=== PATIENT | male | born 1955 | race Caucasian/White ===

== ENCOUNTER 2020-06-03 08:36 | Outpatient (REF) | payer MEDICARE, SELFPAY ==
--- NOTE | ~2020-06-03 | XR_ITS ---
EXAMINATION: XR CHEST CLINICAL INFORMATION: Left chest wall pain. Rule out pneumonia. COMPARISON: CT abdomen and pelvis 04/11/2006 TECHNIQUE: 2 views of the chest were obtained. FINDINGS: To the right of the thoracic spine, superimposed upon the cardiac shadow there is a convex opacity which corresponds with a fat-containing paraesophageal hernia seen on prior CT. The cardiomediastinal silhouette is otherwise normal in size and morphology. The lungs are well-expanded and there is a small amount of linear atelectasis within the lingula which is similar to that seen on the prior CT. No other focal opacities are identified. There is no pleural effusion or pneumothorax. The structures of the chest wall are normal for age. XR/XR chest 2V IMPRESSION: No acute intrathoracic process. Likely chronic linear atelectasis with more needle. Incidental note of fat-containing paraesophageal hernia.
== END 2020-06-03 08:37 | disposition home or self-care (01) ==
LOC: HO.HMGCX 08:36
PROVIDERS: PCP Internal Medicine; Visit Provider Internal Medicine
DX: R07.89 Other chest pain (principal)
CPT/HCPCS: 71046

== ENCOUNTER 2021-10-17 07:22 | Day surgery (SDC) | payer MEDICARE, SELFPAY ==
--- NOTE | 2021-10-14 12:21 | HO.ANESPROP2 ---
Documented by User: Lulú Barrera NP 10/14/21 12:22 HPI - Anesthesia Eval Consult details Narrative: 66yo M for Colonoscopy FORMERLY [facility], [facility] Past Medical History Medical History Elevated cholesterol History of kidney stones Surgical History Surgical History H/O colonoscopy Hx of umbilical hernia repair Social History Social History Patient Tobacco Use Status: Former Tobacco user Quit Date: 40 yr ago Use of substances other than those prescribed or required for medical reasons: No Are you DNR?: No Advance Directives: No Advance Directives Information Provided: Yes Meds Allergies Allergy/AdvReac Type Severity Reaction Status Date / Time No Known Allergies Allergy Verified 10/17/21 08:04 Home Medications Medication Instructions Recorded Confirmed Last Taken Type aspirin 81 mg tablet 81 mg PO DAILY 10/13/21 10/13/21 10/10/21 History atorvastatin 20 mg tablet 20 mg PO DAILY 10/13/21 10/13/21 Unknown History Exam Exam Date and Time: October 14, 2021 1221 Assessment and Plan Assessment Anesthesia Assessment: Chart Reviewed Documented by User: Clif Olivares MD 10/17/21 08:50 FOR[facility]LY [facility], [facility] Past Medical History Medical History Elevated cholesterol History of kidney stones Family History Family history of problems with anesthesia: No Surgical History Surgical History H/O colonoscopy Hx of umbilical hernia repair History of Problems with Anesthesia: No Social History Social History Patient Tobacco Use Status: Former Tobacco user Quit Date: 40 yr ago Use of substances other than those prescribed or required for medical reasons: No Are you DNR?: No Advance Directives: No Advance Directives Information Provided: Yes Meds Allergies Allergy/AdvReac Type Severity Reaction Status Date / Time No Known Allergies Allergy Verified 10/17/21 08:04 Home Medications Medication Instructions Recorded Confirmed Last Taken Type aspirin 81 mg tablet 81 mg PO DAILY 10/13/21 10/13/21 10/10/21 History atorvastatin 20 mg tablet 20 mg PO DAILY 10/13/21 10/13/21 Unknown History Exam Airway Mallampati Class: I TM Dist: >3cm Neck ROM: Full Assessment and Plan Assessment Anesthesia Assessment: Anesthesia Plan Discussed Final Anesthetic Review Family History of Problems with Anesthesia: No History of Problems with Anesthesia: No NPO: Yes ASA Class: II Final Preanesthetic Review: No Changes in Pt Med Stat, Meds/Allgs Chart Reviewed, Consent Obtained/Reviewed and Anes Risks/Benef Reviewed Patient Risk: Low Procedure Risk: Low Anesthetic Plan Anesthetic Plan: MAC: Disposition: Standard PACU
[2021-10-17 07:29] VITALS: BMI 28.5
[2021-10-17 07:38] VITALS: BP 142/90; PULSE 83; RESP 15; TEMP 36.5; O2SAT 96
[2021-10-17] MEDS: Lactated Ringers 1,000 ML 100 ML IVCONT (09:05)
[2021-10-17 09:34] VITALS: BP 80/56; PULSE 59; RESP 16; TEMP 36.3; O2SAT 98
--- NOTE | 2021-10-17 09:39 | PM.OP ---
Brief Operative Note Date of Service: 10/17/21 Pre-op diagnosis: Screening Post-op diagnosis: other (Colon polyp) Procedure: Colonoscopy to the cecum and TI with bx/removal of polyp Surgeon: Aaron Cerna Anesthesia: MAC Was an Antique Clocks Repairer used for this Procedure?: No Estimated blood loss (mL): 2.0 Pathology: other (A. Ascending colon polyp) Condition: stable Disposition: PACU
[2021-10-17 09:49] VITALS: BP 121/81; PULSE 64; RESP 16; TEMP 36.3; O2SAT 100
--- NOTE | 2021-10-17 21:56 | OP_ITS ---
SURGEON: Aaron Cerna MD INDICATIONS: The patient presents for evaluation of colorectal cancer screening and personal history of tubular adenoma of the colon. Full consent obtained from him for this, including risks of bleeding and perforation. PREOPERATIVE DIAGNOSIS: POSTOPERATIVE DIAGNOSIS: PROCEDURE PERFORMED: Colonoscopy to cecum and terminal ileum with biopsy removal of polyp. ESTIMATED BLOOD LOSS: COMPLICATIONS: ANESTHESIA: Preop medication used, monitored anesthesia care. ASSISTANTS: SPECIMENS: PREOPERATIVE DIAGNOSES: Colorectal cancer screening and personal history of tubular adenoma of the colon. POSTOPERATIVE DIAGNOSES: Colorectal cancer screening and personal history of tubular adenoma of the colon, small colon polyp, diverticulosis and internal hemorrhoids. DESCRIPTION OF PROCEDURE: The patient was placed in the left lateral decubitus position. The digital rectal exam revealed no abnormalities. The Olympus video pediatric colonoscope was entered into the rectum and advanced easily to the cecum. Once in the cecum, I did identify normal-appearing cecal pouch with appendiceal orifice and a normal-appearing ileocecal valve. The terminal ileum was cannulated and appeared normal. Scope withdrawn back in the colon. The entire cecum and ileocecal valve appeared normal. The scope was slowly withdrawn assessing all mucosal surfaces carefully. Preparation was excellent. In the proximal ascending colon was an approximately 3 mm polyp, which was biopsied and completely removed with cold biopsy forceps. I did not visualize any other polyps, colitis, or angiodysplasia. There was a moderate amount of sigmoid diverticulosis. In the rectum, scope was retroflexed, visualizing small internal hemorrhoids, but no other pathology. The rectal mucosa appeared normal. The scope was straightened and withdrawn the patient. He tolerated the procedure well and was returned to the recovery area in stable condition. IMPRESSION: 1. Small colon polyp, status post biopsy removal. 2. Diverticulosis. 3. Internal hemorrhoids. PLAN: The results of biopsy will be checked. I would recommend a repeat colonoscopy in 5 years for further surveillance. He will otherwise see me on a p.r.n. basis. MD DALLIN Cunningham/MAXWELL / [id number]
== END 2021-10-17 10:21 | disposition home or self-care (01) ==
PROVIDERS: PCP Internal Medicine; Visit Provider Internal Medicine
PROC: 0DJD8ZZ Inspection of Lower Intestinal Tract, Via Natural or Artificial Opening Endoscopic (ICD-10-PCS; CPT 45378; principal; 2021-10-17 08:30)
DX: Z12.11 Encounter for screening for malignant neoplasm of colon (principal); Z86.010 Personal history of colon polyps; D12.2 Benign neoplasm of ascending colon; K57.30 Diverticulosis of large intestine without perforation or abscess without bleeding; K64.8 Other hemorrhoids; E78.5 Hyperlipidemia, unspecified; Z79.82 Long term (current) use of aspirin; Z79.899 Other long term (current) drug therapy; Z87.442 Personal history of urinary calculi; Z87.891 Personal history of nicotine dependence
CPT/HCPCS: 45380; 88305

== ENCOUNTER → 2023-09-17 10:46 | Outpatient (REF) | payer OTHER, SELFPAY | LOC: HO.SL 10:46 | PROVIDERS: PCP Internal Medicine; Visit Provider Internal Medicine | DX: Z13.89 Encounter for screening for other disorder (principal) ==

== ENCOUNTER → 2023-10-24 15:39 | Outpatient (REF) | payer OTHER, SELFPAY | LOC: HO.SL 15:39 | PROVIDERS: PCP Internal Medicine; Visit Provider Internal Medicine | DX: Z13.89 Encounter for screening for other disorder (principal); G47.33 Obstructive sleep apnea (adult) (pediatric) | CPT/HCPCS: 95806 ==

== ENCOUNTER → 2023-10-24 19:00 | Outpatient (BNV) | payer OTHER, SELFPAY | PROVIDERS: PCP Internal Medicine; Visit Provider Internal Medicine | DX: G47.33 Obstructive sleep apnea (adult) (pediatric) (principal) | CPT/HCPCS: 95806 ==

== ENCOUNTER 2024-08-21 08:03 | Outpatient (REF) | payer OTHER, SELFPAY ==
--- OUTSIDE RECORDS SUMMARY | 2024-08-21 08:08 | XMS_ITS | Patient Health Record ---
Author Organization [facility] Address [address] [place] [address] Care Team Providers Care Cigar Head Perforator Name Role Phone Maxi Kennedy MD Primary Care Provider Aaron Way Unavailable [phone] Allergies No Known Allergies Reason For Referral No Information Medications Medication SIG (Take, Route, Frequency, Duration) Notes Start Date End Date Status Aspir-81 81 MG 1 tablet Orally Once a day Active Atorvastatin Calcium 20 MG 1 tablet Oral ly Once a day Active Immunizations Vaccine Route Administration Date Status Comme nts Influenza Unknown 08/17/2021 Refused Problems Problem Type SNOMED Code ICD Code Onset Dates Problem Status W/U Status Risk Notes Problem 508827733 Encounter for screening for malignant neoplasm of colon (Z12.11) Active confirmed Problem History of adenomatous polyp of colon (056866067) History of adenomatous polyp of colon (Z86.010) Active confirmed Problem Screening for malignant neoplasm of rectum (675993794) Encounter for screening for malignant neoplasm of rectum (Z12.12) Active confirmed Problem 34646736 Preprocedural examination (Z01.818) Active confirmed Problem Diverticulosis of colon (128635014) Diverticulosis of colon (K57.30) Active confirmed Plan Of Treatment Pending Test Test Name Order Date Pathology 10/17/2021 Future Test Test Name Order Date COLONOSCOPY 02/04/2016 COLONOSCOPY 08/17/2021 Insurance Providers Payer Name Payer Address Payer Phone Subscriber Number Group Number Insured Name Patient Relationship to Insured Coverage Start Date Coverage End Date [facility] [address] [address] [place] [address] [id number] KATHY RAZA Self - patient is the insured Medical (General) History Medical History History ICD Code Screening colonoscopy 006--negative except for sigmoid diverticulosis and internal hemorrhoids Hyperlipidemia Denies [place],DM,CVA,Lung disease,renal dise ase Kidney stones Colonoscopy 04/2016 with small tubular ad enomas removed Surgical History Surgery Date(Month/Year) Umbilical hernia
[2024-08-21 10:46] LABS: Hematocrit 44.5 % (42.0-52.0); Mean Corpuscular HGB Conc 33.7 g/dl (31.0-36.0); Mean Corpuscular Volume 91.9 fL (80.0-98.0); Mean Platelet Volume 10.4 fL (9.4-12.4); Platelet Count 259 X10*3/uL (160-400); Red Blood Count 4.84 X10*6/uL (4.60-5.80); Red Cell Distribution Width 13.4 % (11.0-16.0); White Blood Count 6.8 X10*3/uL (4.8-10.8)
[2024-08-21 11:07] LABS: Alanine Aminotransferase 30 U/L (0-40); Albumin Level 4.6 g/dL (3.5-5.0); Alkaline Phosphatase 58 U/L (39-117); Anion Gap 11 (12-20); Aspartate Amino Transferase 30 U/L (5-37); Bilirubin Direct 0.3 mg/dL (0.0-0.5); Bilirubin Total 0.8 mg/dL (0.0-1.0); Blood Urea Nitrogen 13 mg/dL (9-16); Carbon Dioxide 25 mmol/L (22-29); Chloride 109 mmol/L (96-108); Cholesterol 159 mg/dL (<200); Estimated Glomerular Filt Rate > 60; Glucose Random 106 mg/dL (60-115); HDL Cholesterol 42 mg/dL (>40); LDL Cholesterol Calculated 88 mg/dL (<100); Potassium 3.9 mmol/L (3.3-5.1); Sodium 141 mmol/L (135-145); Total Protein 7.3 g/dL (6.5-8.0); Triglycerides 149 mg/dL (<150)
[2024-08-21 11:08] LABS: Thyroid Stimulating Hormone 3.29 uIU/mL (0.32-4.0)
[2024-08-21 11:09] LABS: Prostate Specific Antigen Scr 1.18 ng/mL (<0.05-4.0)
== END 2024-08-21 08:04 | disposition home or self-care (01) ==
LOC: HO.HMGCLDS 08:03
PROVIDERS: PCP Internal Medicine; Visit Provider Internal Medicine
DX: E78.00 Pure hypercholesterolemia, unspecified (principal); Z12.5 Encounter for screening for malignant neoplasm of prostate
CPT/HCPCS: 36415; 80048; 80061; 80076; 84153; 84443; 85027

== ENCOUNTER 2024-08-22 07:50 | Outpatient (REF) | payer OTHER, SELFPAY ==
[2024-08-22 10:43] LABS: Appearance Urine Turbid; Color Urine Yellow; Glucose Urine UA Negative (Negative); Leukocyte Esterase Urine Negative (Negative); Nitrite Urine Negative (Negative); PH 5.5 (5.0-9.0); Specific Gravity - Urine 1.025 (1.005-1.025); Urine Blood Negative (Negative); Urine Ketones Trace mg/dL (Negative); Urine Protein Negative (Neg-Trace)
== END 2024-08-22 07:51 | disposition home or self-care (01) ==
LOC: HO.HMGCLNP 07:50
PROVIDERS: PCP Internal Medicine; Visit Provider Internal Medicine
DX: E78.00 Pure hypercholesterolemia, unspecified (principal)
CPT/HCPCS: 81003

== ENCOUNTER 2024-08-26 09:18 | Outpatient (AMB) | payer OTHER, SELFPAY ==
--- NOTE | 2024-08-26 09:29 | A.OFFPC_ITS ---
Vital Signs 08/26/24 09:30 Height 5 ft 7 in Weight 201 lb BMI 31.5 BP 140/96 H Blood Pressure Location Rt brachial Position Sitting Pulse 70 Pulse Source Pulse Oximeter Temp 98.2 F Temp Source Temporal Artery Scan Pulse Oximetry (%) 100 Oxygen Delivery Method Room Air Intake Visit Reasons: establish care Tier Lift Truck Operator Required: No Accompanied by: Self / Same As Patient Allergies No Known Allergies Allergy (Verified 08/26/24 09:31) Tobacco use date assessed: 08/26/24 Fall risk assessment: No Falls in past year Last assessed Fall Risk: 08/26/24 Dental Screening Dental Screen Date: 08/26/24 Did you have a dental visit in the last 12 months?: Yes Did you have a dental problem in the last 6 months where you did not have access to dental care?: No Was dental information given to patient?: Patient has dentist [facility] Medical History (Updated 08/26/24 @ 10:00 by Akil Slade MD) Essential hypertension History of kidney stones Elevated cholesterol Surgical History Hx of umbilical hernia repair H/O colonoscopy (~10/17/21) Family History (Updated 08/26/24 @ 09:45 by FRANCO Hercules) Father No problems noted. Mother Alzheimer dementia Social History (Updated 08/26/24 @ 09:45 by FRANCO Hercules) Housing: House Alcohol intake: current Alcohol intake frequency: holidays/special occasions only Patient Tobacco Use Status: Former Tobacco user Tobacco use type: Cigarette service: No Current occupational status: retired Cognitive needs: No Hearing needs: Yes (has b/l hearing aids but does not use) Vision needs: Yes (rx glasses) Questionnaire PHQ-9 Over the last 2 weeks, how often have you been bothered by any of the following problems? 1. Little interest or pleasure in doing things: not at all 2. Feeling down, depressed, or hopeless: not at all 3. Trouble falling or staying asleep, or sleeping too much: not at all 4. Feeling tired or having little energy: not at all 5. Poor appetite or overeating: not at all 6. Feeling bad about yourself - or that you are a failure or have let yourself or your family down: not at all 7. Trouble concentrating on things, such as reading the newspaper or watching television: not at all 8. Moving or speaking so slowly that other people could have noticed. Or the opposite - being so fidgety or restless that you have been moving around a lot more than usual: not at all 9. Thoughts that you would be better off or of hurting yourself in some way: not at all Total score: 0 Source: Developed by Drs. Aaron Lopez, Jackelin Freed, Delmar Dowling and colleagues, with an educational trent from [employer]. Thrive Questionnaire Date Thrive assessed: 08/26/24 I am a: Patient What is your living situation today?: I have a steady place to live Within the past 12 months, did the food you bought not last and you didn't have the money to get more?: Never true Within the past 12 months, did you worry whether your food would run out before you got money to buy more?: Never true Do you have trouble paying for medicines?: No Do you have trouble getting transportation to medical appointments?: No Do you have trouble paying your heating and electricity bill?: No Do you have trouble taking care of your child, family member or friend?: No Do you have trouble with day-to-day activities such as bathing, preparing meals, shopping, managing finances, etc.?: No Are you currently unemployed and looking for a job?: No Are you interested in more education?: No Please select the resources that you would like help with: None THRIVE Score: 0 AUDIT C Alcohol Use Questionnaire (AUDIT-C) 1. How often do you have a drink containing alcohol?: Monthly or less 2. How many drinks containing alcohol do you have on a typical day when you are drinking?: 1 or 2 3. How often do you have six or more drinks on one occasion?: Never Total Score: 1 BRITTA-7 AMB Questionnaire BRITTA-7 Date BRITTA - 7 assessed: 08/26/24 Feeling nervous, anxious, or on edge: 0 = Not at all Not being able to stop or control worryin = Not at all Worrying too much about different things: 0 = Not at all Trouble relaxin = Not at all Being so restless that it is hard to sit still: 0 = Not at all Becoming easily annoyed or irritable: 0 = Not at all Feeling afraid as if something awful might happen: 0 = Not at all Total BRITTA-7 score (0-4 normal; 5-9 mild; 10-14 moderate; 15-21 severe): 0 Source: Developed by Drs. Aaron Lopez, Jackelin Freed, Delmar Dowling and colleagues, with an educational trent from [employer]. Physical exam (Primary Care) Vital Signs: Last Vital Signs Temp 98.2 F 08/26/24 09:30 Pulse 70 08/26/24 09:30 BP 140/96 H 08/26/24 09:30 Pulse Ox 100 08/26/24 09:30 Oxygen Delivery Method Room Air 08/26/24 09:30 BMI result Body Mass Index 31.5 Tobacco/Smoking Status: Tobacco use Status Tobacco use date assessed 08/26/24 08/26/24 09:37 Patient Tobacco Use Status Former Tobacco user 08/26/24 09:45 Tobacco use type Cigarette 08/26/24 09:46 PHQ-9: PHQ-9 Score PHQ-9: Total score 0 08/26/24 09:37 Thrive Assessment: Date of Thrive Assessment Date Thrive assessed 08/26/24 08/26/24 09:37 Coding Level of Care Code New Pt Level 4 (05913) Complex EM visit Add On G2211 Diagnoses Elevated cholesterol E78.00 Essential hypertension I10 Assessment & Plan Assessment & Plan (1) Elevated cholesterol: Code(s): E78.00 - Pure hypercholesterolemia, unspecified Category: Medical Plan: BW revd, LDL in range. Continue meds at same dosage. (2) Essential hypertension: Code(s): I10 - Essential (primary) hypertension Category: Medical Plan: BP is elevated. He would like to record BP at home before he considers medications. I agreed with the plan. Plan History of Present Illness - The patient is a 69-year-old male presenting for a wellness visit and evaluation of blood pressure. - He reports that his blood pressure is elevated with home measurements not performed. - He maintains control of his hyperlipidemia with medication. - No notable changes in vision, and colonoscopy was recently updated. - Experiences occasional leg pain which is not symptomatic during the visit. - Blood work recently performed showed all parameters within normal range. Social History - The patient is retired, having worked for the [employer] in [place]. - Denies any tobacco use. Review of Systems - Cardiovascular: Reports elevated blood pressure readings. - Musculoskeletal: Reports leg pain and cramping when legs are elevated. - Neurological: Denies vision changes such as halos around lights and reports ability to drive at night. - Genitourinary: Denies difficulty urinating or incontinence. Physical Exam General: Cooperative and healthy appearing Nutritional Appearance: Well nourished Orientation/consciousness: Patient oriented x3 Limitations: No limitations Head: Normal to inspection General: Appearance normal, both eyes and all related structures Neck: Normal visual inspection Chest: Normal palpation of entire chest wall Respiratory: N ormal respiratory effort Neurology: Patient oriented x3, reports leg pain and cramping when stretching out leg while sitting. Results - Labs: Recent blood work indicated normal kidney and liver function, normal cholesterol levels, and no anemia. Plan 1. Essential Hypertension - Advise patient to monitor blood pressure at home, record readings. - Consider antihypertensive medication if readings remain elevated. 2. Hyperlipidemia - Continue current statin regimen. - Routine follow-up blood work to monitor cholesterol levels. Discussion Notes During the visit, I discussed with Mr. Macdonald the recent findings of elevated blood pressure and the importance of confirming these readings with home monitoring. We talked about obtaining several blood pressure readings over time to decide on the necessity of initiating an antihypertensive medication. Mr. Macdonald expressed understanding and agreed to email the readings or upload them to the medical portal. I also reviewed the normal blood work results, including kidney and liver function tests and cholesterol levels, underscoring the effectiveness of his current statin therapy. We agreed to continue monitoring these parameters regularly. Additionally, I provided reassurance regarding his vision and recent colonoscopy findings. I asked him to update me if there were any changes or concerns in the future. Patient Instructions - Check your blood pressure at home using your son's equipment, aiming for readings at various times of day. - Record at least 10 readings and send them via email or the medical portal. - Continue your current statin medication for cholesterol. - Follow up with any new or worsening symptoms, and keep regular appointments for routine health checks. - Keep track of any changes in vision or persistent leg pain and report them if they occur. Orders: Orders Complete Blood Count no Diff 08/21/24 E78.00 - Pure hypercholesterolemia, unspecified Basic Metabolic Panel 08/21/24 - Pure hypercholesterolemia, unspecified Thyroid Stimulating Hormone 08/21/24 E7. - Pure hypercholesterolemia, unspecified Prostate Specific Antigen Scr 08/21/24 - Pure hypercholesterolemia, unspecified Liver Panel 08/21/24 - Pure hypercholesterolemia, unspecified Lipid Panel 08/21/24 - Pure hypercholesterolemia, unspecified UA and rflx microscopic 08/22/24 - Pure hypercholesterolemia, unspecified
[2024-08-26 09:30] VITALS: BP 140/96; PULSE 70; TEMP 36.8; O2SAT 100; BMI 31.5
--- OUTSIDE RECORDS SUMMARY | 2024-08-26 10:06 | XMS_ITS | Patient Health Record ---
Author Organization [facility] Address [address] [place] [address] Care Team Providers Care Reporting Analyst Name Role Phone Maxi Kennedy MD Primary Care Provider Aaron Way Unavailable [phone] Allergies No Known Allergies Reason For Referral [...] Problem Status W/U Status Risk Notes Problem 887565219 Encounter for screening for malignant neoplasm of colon (Z12.11) Active confirmed Problem History of adenomatous polyp of colon (976776311) History of adenomatous polyp of colon (Z86.010) Active confirmed Problem Screening for malignant neoplasm of rectum (839275340) Encounter for screening for malignant neoplasm of rectum (Z12.12) Active confirmed Problem 77898906 Preprocedural examination (Z01.818) Active confirmed Problem Diverticulosis of colon (203331903) Diverticulosis of colon (K57.30) Active confirmed Plan Of Treatment Pending Test Test Name Order Date Pathology 10/17/2021 Future Test Test Name Order Date COLONOSCOPY 02/04/2016 COLONOSCOPY 08/17/2021 Insurance Providers Payer Name Payer Address Payer Phone Subscriber Number Group Number Insured Name Patient Relationship to Insured Coverage Start Date Coverage End Date [facility] [address] [address] [place] [address] [id number] KATHY RAZA Self - patient is the insured Medical (General) History Medical History History ICD Code Screening colonoscopy 006--negative except for sigmoid diverticulosis and internal hemorrhoids Hyperlipidemia Denies [place],DM,CVA,Lung disease,renal dise ase Kidney stones Colonoscopy 04/2016 with small tubular ad enomas removed Surgical History Surgery Date(Month/Year) Umbilical hernia
== END 2024-08-26 09:57 | disposition home or self-care (01) ==
LOC: HO.HMCSH 09:18
PROVIDERS: PCP Internal Medicine; Visit Provider Internal Medicine
DX: E78.00 Pure hypercholesterolemia, unspecified (principal); I10 Essential (primary) hypertension

== ENCOUNTER → 2024-08-26 09:18 | Outpatient (BNVA) | payer OTHER, SELFPAY | PROVIDERS: PCP Internal Medicine; Visit Provider Internal Medicine | DX: E78.00 Pure hypercholesterolemia, unspecified (principal) ==

== ENCOUNTER 2025-02-24 09:21 | Outpatient (AMB) | payer OTHER, SELFPAY ==
[2025-02-24 09:25] VITALS: BP 138/77; PULSE 90; RESP 16; TEMP 36.7; O2SAT 97; BMI 32.3
--- NOTE | 2025-02-24 09:25 | A.OFFPC_ITS ---
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 Mother Alzheimer dementia Social History Housing: House Alcohol intake: current Alcohol intake frequency: holidays/special occasions only Patient Tobacco Use Status: Former Tobacco user Tobacco use type: Cigarette service: No Current occupational status: retired Cognitive needs: No Hearing needs: Yes (has b/l hearing aids but does not use) Vision needs: Yes (rx glasses) Questionnaire PHQ-9 Over the last 2 weeks, how often have you been bothered by any of the following problems? 1. Little interest or pleasure in doing things: not at all 2. Feeling down, depressed, or hopeless: not at all 3. Trouble falling or staying asleep, or sleeping too much: not at all 4. Feeling tired or having little energy: not at all 5. Poor appetite or overeating: not at all 6. Feeling bad about yourself - or that you are a failure or have let yourself or your family down: not at all 7. Trouble concentrating on things, such as reading the newspaper or watching television: not at all 8. Moving or speaking so slowly that other people could have noticed. Or the opposite - being so fidgety or restless that you have been moving around a lot more than usual: not at all 9. Thoughts that you would be better off or of hurting yourself in some way: not at all Total score: 0 Source: Developed by Drs. Aaron Lopez, Jackelin Freed, Delmar Dowling and colleagues, with an educational trent from [employer]. Thrive Questionnaire Date Thrive assessed: 08/26/24 I am a: Patient What is your living situation today?: I have a steady place to live Within the past 12 months, did the food you bought not last and you didn't have the money to get more?: Never true Within the past 12 months, did you worry whether your food would run out before you got money to buy more?: Never true Do you have trouble paying for medicines?: No Do you have trouble getting transportation to medical appointments?: No Do you have trouble paying your heating and electricity bill?: No Do you have trouble taking care of your child, family member or friend?: No Do you have trouble with day-to-day activities such as bathing, preparing meals, shopping, managing finances, etc.?: No Are you currently unemployed and looking for a job?: No Are you interested in more education?: No Please select the resources that you would like help with: None THRIVE Score: 0 AUDIT C Alcohol Use Questionnaire (AUDIT-C) 1. How often do you have a drink containing alcohol?: Monthly or less 2. How many drinks containing alcohol do you have on a typical day when you are drinking?: 1 or 2 3. How often do you have six or more drinks on one occasion?: Never Total Score: 1 BRITTA-7 AMB Questionnaire BRITTA-7 Date BRITTA - 7 assessed: 08/26/24 Feeling nervous, anxious, or on edge: 0 = Not at all Not being able to stop or control worryin = Not at all Worrying too much about different things: 0 = Not at all Trouble relaxin = Not at all Being so restless that it is hard to sit still: 0 = Not at all Becoming easily annoyed or irritable: 0 = Not at all Feeling afraid as if something awful might happen: 0 = Not at all Total BRITTA-7 score (0-4 normal; 5-9 mild; 10-14 moderate; 15-21 severe): 0 Source: Developed by Drs. Aaron Lopez, Jackelin Freed, Delmar Dowling and colleagues, with an educational trent from [employer]. Physical exam (Primary Care) Vital Signs: Last Vital Signs Temp 98.1 F 02/24/25 09:25 Pulse 90 02/24/25 09:25 Resp 16 02/24/25 09:25 BP 138/77 02/24/25 09:25 Pulse Ox 97 02/24/25 09:25 Oxygen Delivery Method Room Air 02/24/25 09:25 BMI result Body Mass Index 32.3 Tobacco/Smoking Status: Tobacco use Status Tobacco use date assessed 08/26/24 02/24/25 09:26 Patient Tobacco Use Status Former Tobacco user 02/24/25 09:26 Tobacco use type Cigarette 02/24/25 09:26 PHQ-9: PHQ-9 Score PHQ-9: Total score 0 02/24/25 09:51 Thrive Assessment: Date of Thrive Assessment Date Thrive assessed 08/26/24 02/24/25 09:26 Office Procedures Flu Questionnaire Does the patient have a severe egg allergy?: No Does the patient have severe life threatening allergies?: No Does the patient have a fever or illness today?: No Has the patient ever had Guillain-Swengel Syndrome?: No Has the patient ever had any past reaction to a flu shot?: No Immunizations Fluarix [id number] (PF) 45 mcg (15 mcg x 3)/0.5 mL IM syringe Performing Provider: Akil Slade MD Performing Location: [facility] Documented (not given) by: FRANCO Hercules on 02/24/25 09:33 Reason Not Given: Patient Refused Boostrix Tdap 2.5 Lf unit-8 mcg-5 Lf/0.5 mL intramuscular syringe Performing Provider: Akil Slade MD [facility] Administered by: FRANCO Hercules on 02/24/25 11:26 Dose Route Admin Location Dispensed Lot Number Expiration Date NDC Padded Products Inspector Trimmer 0.5 mL IM Left Deltoid 0.5 mL [id number] 02/05/27 14960-730-24 [employer] Total Dispensed Waste 0.5 mL 0 % VIS Given Date VIS Provided VIS Publication Date 02/24/25 Single Vaccine 20 Eligibility Eligibility Date Funding Source Not [facility] Eligible 02/24/25 Private Coding Assessment & Plan Assessment & Plan Orders: Orders Influenza [id number] Immunization Today Z23 - Encounter for immunization TDaP Immunization Today Z23 - Encounter for immunization
== END 2025-02-24 10:04 | disposition home or self-care (01) ==
LOC: HO.HMCSH 09:21
PROVIDERS: PCP Internal Medicine; Visit Provider Internal Medicine
DX: Z23 Encounter for immunization (principal)

== ENCOUNTER → 2025-02-24 09:21 | Outpatient (BNVA) | payer OTHER, SELFPAY | PROVIDERS: PCP Internal Medicine; Visit Provider Internal Medicine | DX: I10 Essential (primary) hypertension (principal); K44.9 Diaphragmatic hernia without obstruction or gangrene; N20.0 Calculus of kidney; Z23 Encounter for immunization | CPT/HCPCS: 90471; 90715 ==